=== PATIENT | female | born 1985 | race Caucasian/White ===

== ENCOUNTER 2022-05-29 17:15 | Outpatient (CLI) | payer OTHER, SELFPAY | END 2022-05-29 17:16 | disposition home or self-care (01) | LOC: ANHLAB 17:18 | PROVIDERS: Visit Provider Anesthesiology | DX: Z01.818 Encounter for other preprocedural examination (principal); N92.0 Excessive and frequent menstruation with regular cycle | CPT/HCPCS: 36415; 86850; 86900; 86901 ==

== ENCOUNTER 2022-06-05 00:17 | Day surgery (SDC) | payer BC, OTHER, SELFPAY ==
[2022-05-22 13:26] VITALS: BMI 20.4
--- NOTE | 2022-05-22 14:02 | PC.NURSE ---
Report to the Outpatient Waiting Room, entrance under the green pavilion located off [facility], at time 0600 on date 06/05/22. Planned Procedure Time: _0730_. Time changes happen often and if your time is changed the preop area will call you the afternoon before. - You and your visitor will be asked to self-screen and do not enter if you have any COVID symptoms. - Only one visitor is requested with a max of two and NO children visitors are allowed at this time. - The patient visitor may be requested to leave or wait in car when not with patient due to distancing restrictions. - A mask is optional within the hospital at this time. Patients may have clear liquids (water, carbonated beverages, clear teas, apple juice) until 3 hours prior to surgery with a maximum of 20 ounces. - No food from midnight until time of surgery - Infants may have breast milk until 4 hours before surgery, infant formula 6 hours prior to surgery. - Children will be allowed to drink immediately following surgery. If applicable, please bring a bottle or sippy cup to assist with drinking. Juice, water, soda, and popsicles are readily available. For infants on formula, please bring formula the day of surgery. Pacifiers are allowed. Take the following medications with a SIP of water the morning of surgery: __levothyroxine_ DO NOT STOP ANY OF YOUR OTHER PRESCRIPTION MEDICATIONS PRIOR TO SURGERY ?EXCEPT THE FOLLOWING Medications to discontinue per physician _multivitamin Date to take last dose_06/02/22____ Please no make-up, nail turkmen, hairspray, perfume, deodorant, or body powder the day of surgery. No jewelry (including any body piercings) or valuables the day of surgery, leave them at home. Please take a shower or bath the night before, or the morning of, surgery with an antibacterial soap. Wear comfortable, loose fitting clothing. Children are encouraged to wear pajamas. - Jewelry must be removed prior to entering the operating room. Rings and piercings that are not removed may be cut off. - The hospital will not accept responsibility for valuables. - Please leave all valuables, including medications, at home the day of surgery. If you are going home after surgery, a licensed tractor trailer moving van driver must drive you home. - NO public transportation without another adult if you receive anesthesia. - We recommend that an adult stay with you for 24 hours following discharge. - We also recommend that you do not drive, make important decision, drink alcoholic beverages, or take any drugs that were not prescribed by your health care provider for at least 24 hours after your discharge time. For Pediatric surgeries, we recommend two adults accompany the child home. Follow any additional instructions given to you from your surgeon. If you or anyone in your household have experienced Covid symptoms in the past week, please notify your surgeon or the nurse liaison at the phone number below for possible testing. Telephone instructions given to _Jace Kennedy_and asked if any additional questions and then verbalized understanding. Patient advised to call surgeon office or pre surgery nurse liaison [phone] if any additional questions.
[2022-06-05] VITALS (16 sets, daily range): BP systolic 77–98; BP diastolic 37–66; PULSE 56–95; RESP 12–18; TEMP 36–37; O2SAT 98–100
--- NOTE | 2022-06-05 07:54 | WPDHPUPDATE1 ---
History and Physical Update Update Date/Time: 06/05/22 07:54 History and Physical has been reviewed, including an updated exam of the patient. There are NO changes in the patient's condition. Risks, benefits, and alternatives have been discussed and questions answered. Patient agrees to proceed with procedure.
[2022-06-05] MEDS: ACETAMINOPHEN 500 MG TABLET 1000 MG PO (08:01)
[2022-06-05] MEDS: LACTATED RINGERS 1,000 ML 30 ML IV CONT ×2 (08:20→10:38)
[2022-06-05] MEDS: KETOROLAC 15 MG/ML VIAL (*BKC) IV PUSH (08:23)
--- NOTE | 2022-06-05 08:27 | WPDANESEPPF ---
Anes - Initial Pre Proc Eval Procedure: Operation Date: 06/05/22 07:30 Proposed Procedures p Robotic Assisted Hysterectomy with Bilateral Salpingectomy - Becky Forrest MD Date/Time: 06/05/22 08:27 Surgeon: Becky Forrest MD Pre Op Diagnosis: Menorrhagia Patient Data Age: 36 Gender: F Height: 1.63 m Weight: 51.6 kg Last Vital Signs Temp 98.2 F 06/05/22 08:25 Pulse 86 06/05/22 08:25 Resp 16 06/05/22 08:25 BP 97/66 L 06/05/22 08:25 Pulse Ox 100 06/05/22 08:25 O2 Del Method Room Air 06/05/22 08:25 Allergies Allergy/AdvReac Type Severity Reaction Status Date / Time Penicillins AdvReac Rash Verified 06/05/22 07:52 Home Medications Medication Instructions Recorded Confirmed Type levothyroxine 125 mcg tablet 125 mcg PO DAILY 05/22/22 06/05/22 History multivit with minerals-iron 18 1 tablet PO DAILY 05/22/22 06/05/22 History mg-folic ac 400 mcg-vit K 25 mcg tablet (Adults Multivitamin) Laboratory Tests 06/05/22 08:16 Beta HCG, Quant Pending Patient hx anesthesia problems: none Family hx anesthesia problems: none Results Review: All pre-operative results and documents have been reviewed as part of the pre-operative evaluation. [facility] Social History Social History Years smoked: 20 Smoking status: Former smoker Tobacco type: cigarettes Smoking end date: 04/21/20 Alcohol intake: never Substance use: never Living arrangements: with family Spiritual care concerns: No Anes - Eval Final PreProcedure Day of Procedure 06/05/22 08:27 Patient weight: normal Heart: regular rate and rhythm Lungs: clear to auscultation Airway: Mallampati scale class II Neurological: alert and oriented Last oral intake: >/= 8 hours ASA classification: II Emergent: no Anesthetic plan: proceed Anesthesia type and monitoring: general ETT and standard monitoring Results Review: All pre-operative results and documents have been reviewed as part of the pre-operative evaluation. Informed Consent: The patient's anesthetic plan and its attendant risks and benefits were discussed with the patient/family/POA. Questions were solicited and answers provided to the satisfaction of the patient/family/POA.
[2022-06-05] MEDS: ceFAZolin 2 GM/D5W 50 ML 2 GM/50 ML BAG IVPB (08:35)
[2022-06-05 09:17] LABS: Hematocrit 31.4 % (37.0-47.0); Hemoglobin 10.5 g/dL (12.0-15.0); Mean Corpuscular HGB Conc 33.4 g/dl (32-36); Mean Corpuscular Hemoglobin 31.2 pg (26-34); Mean Corpuscular Volume 93.2 fl (80-100); Mean Platelet Volume 9.1 fl (7.4-10.4); Platelet Count Result 256 k/mm3 (150-375); Red Blood Count 3.37 M/mm3 (4.2-5.4); Red Cell Distribution Width 12.4 % (11.5-14.5)
[2022-06-05] MEDS: fentaNYL CITRATE INJ (*CRX) 100 MCG/2 ML VIAL 25 MCG IV PUSH ×6 (10:56→12:09)
--- NOTE | 2022-06-05 11:15 | SUR.PHASEI ---
DR PRESSLEY NOTIFIED OF LOW BLOOD PRESSURES (78/47, 77/37) HEART RATE MID 60S. DR PRESSLEY COMING TO RECOVERY TO ASSESS PATIENT.
--- NOTE | 2022-06-05 11:45 | SUR.PHASEI ---
DR PRESSLEY AT BEDSIDE. PATIENT HAVING SEVERE PAIN. ORDERED 0.5MG DILAUDID
[2022-06-05] MEDS: HYDROmorphone HCL INJ (*CRX) 1 MG/ML SYR 0.5 MG IV PUSH (11:47)
--- NOTE | 2022-06-05 12:02 | W.PM.PROC2 ---
Procedure Note - Detailed Date of Procedure 06/05/22 Pre-op Diagnosis Menorrhagia Post-op Diagnosis Same Procedure Performed Robot assisted Total hysterectomy with bilateral salpingectomy. Surgeon Becky Forrest MD Anesthesia General Indications heavy vaginal bleeding Findings normal-appearing uterus, ovaries, and fallopian tubes, status post tubal ligation. Description of Procedure This patient was taken to the operating room. She was prepped and draped in the dorsal lithotomy position after induction of general anesthesia. The uterine manipulator and Chapis cup were placed. This was done with a speculum and tenaculum. The speculum was placed. The cervix was grasped with a tenaculum. The stay sutures were placed at 3 and 9:00 a.m.. The stay sutures of 0 Vicryl were tied to the appropriately Size scope after it was slipped around the cervix.. The tip of the DREAD manipulator was placed in the intrauterine cavity. The cup was slid into place around the cervix and into the fornices. It was locked into place. The sutures were then wrapped around the handle and tied under tension. A 8 mm skin incision was made in the left upper quadrant the abdomen. a 5 mm Visiport trocar was inserted into abdominal cavity and pneumoperitoneum was achieved. A 8 mm supraumbilical incision was made and a 8 mm trocar was inserted into the intrauterine cavity under direct visualization of the scope. an 8 mm incision was made in the right upper quadrant of the abdomen and an 8 mm robotic trocar was placed the inter uterine cavity under direct visualization the scope. An 11 mm trocar was inserted in the right upper quadrant of the abdomen rectal is a cystoscope after an incision was made there as well. The robot was docked. Electronic Orientation of the robot was performed. Bilateral ureteral lysis was performed. This was done from the pelvic brim down to the uterine artery. This was done with careful dissection using sharp and blunt dissection. The fallopian tubes were removed bilaterally. The mesosalpinx around the fallopian tubes were cauterized transected with LigaSure cautery. This was done in a bilateral fashion from the ovary to the uterine cornua. The fallopian tube was transected at the uterine cornu and amputated. The tube was taken out the left lower quadrant trocar site. In a stepwise fashion along the lateral aspects of the uterus the round ligament and broad ligaments were cauterized transected down to the level of the uterine arteries. A bladder flap was created in the bladder was moved distally to the end of the cervix and over the Chapis cup. The bilateral uterine arteries were cauterized and transected. Colpotomy was then performed. In a circumferential fashion the vagina was transected using unipolar cautery. The incision was made down on the Chapis cup. The uterus and cervix were taken out through the vagina. A pneumo occluder was placed in the vagina. The vaginal cuff was closed with a 0 V lock suture in a running fashion. The pelvis was irrigated with copious amounts antibiotic irrigation. The ureters were again examined and found to be intact and flowing freely under the uterine arteries into the bladder. The bladder was intact. It was examined directly. The vagina was irrigated with Betadine solution after removal of the Pneumo occluder. the trocars were removed after the robot was undocked. The skin was closed with subacute or Dermabond. The patient was taken to recovery room. She was stable condition. Sponge lap and needle counts were correct x2. Estimated Blood Loss -150.0 Urine Output 800 Drains Yes Packing No Pathology Yes Complications No immediate complications Condition Stable Disposition Floor
--- NOTE | 2022-06-05 12:31 | PC.NURSE ---
This patient, Jace Kennedy, was received from PACU on 06/05/22 at 1231. Patient/family oriented to unit policies and routines
[2022-06-05] MEDS: DEXTROSE 5%/0.45% SOD CHL 1,000 ML 125 ML IV CONT (12:53)
[2022-06-05] MEDS: KETOROLAC 30 MG/ML VIAL (*BKC) IV PUSH (13:04)
--- NOTE | 2022-06-05 13:12 | PC.NURSE ---
On 06/05/22, the student, Tiana Mccann, provided care and completed [facility] documentation on this patient. I have reviewed the student's documentation and agree with the findings.
[2022-06-05] MEDS: HYDROcodone/acetaminophen (*CRX) 10-325 MG TABLET 1 TAB PO ×4 (13:33→23:13)
[2022-06-05] MEDS: SIMETHICONE 80 MG TAB.CHEW (13:39)
[2022-06-05] MEDS: SIMETHICONE 80 MG TAB.CHEW PO ×3 (17:20→23:13)
[2022-06-05] MEDS: IBUPROFEN 600 MG TABLET PO (19:57)
[2022-06-06 03:20] VITALS: BP 89/53; PULSE 69; RESP 16; TEMP 36.9
[2022-06-06] MEDS: HYDROcodone/acetaminophen (*CRX) 10-325 MG TABLET 1 TAB PO (03:21)
[2022-06-06] MEDS: SIMETHICONE 80 MG TAB.CHEW PO ×3 (03:21→11:45)
[2022-06-06] MEDS: IBUPROFEN 600 MG TABLET PO ×2 (03:21→08:38)
--- NOTE | 2022-06-06 07:00 | PC.NURSE ---
Pt introductions made and plan of care discussed per post op criminal lawyer surgery, pain management, daily care activities and pending discharge to home. PT sole recipient of such instructions and no barriers to learning identified at this time. PT received such instructions this shift via one to one discussion and demonstrations. PT verbalized understanding of such care.
[2022-06-06] MEDS: LEVOTHYROXINE SODIUM 125 MCG TABLET PO (07:48)
[2022-06-06 08:10] VITALS: BP 87/55; PULSE 100; RESP 16; TEMP 37.1; O2SAT 100
--- NOTE | 2022-06-06 08:25 | PM.GYNPNOP ---
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 TENDER HELPER- PN:Subj Post-Op Subjective Date/time seen: 06/06/22 08:25 Subjective: patient reports feeling better, patient has no complaints and pain is well controlled Exam Const: General: healthy appearing, comfortable and no acute distress Resp: Auscultation: clear to auscultation bilaterally, no rales, no rhonchi and no wheezes Cardio: Rate: regular rate Heart sounds: no click, no murmurs and no rubs GI: Inspection: non-distended Auscultation: normal bowel sounds Extrem: General: normal to inspection, no pedal edema and no calf tenderness FILTER TANK TENDER HELPER - PN: Obj Data Vital Signs Vital Signs: Vital Signs - 24 hr 06/05/22 10:38 06/05/22 10:50 06/05/22 11:05 Temperature 96.9 F L Pulse Rate 94 72 82 Respiratory Rate 16 12 18 Blood Pressure 98/57 L 97/57 L 96/57 L Pulse Oximetry 100 100 100 Oxygen Delivery Simple Face Mask Simple Face Mask Simple Face Mask Oxygen Flow Rate 8 8 8 06/05/22 11:20 06/05/22 11:10 06/05/22 11:30 Temperature Pulse Rate 63 Respiratory Rate 16 Blood Pressure 84/46 L 78/47 L 91/61 L Pulse Oximetry 100 Oxygen Delivery Simple Face Mask Oxygen Flow Rate 8 06/05/22 11:35 06/05/22 11:15 06/05/22 11:50 Temperature Pulse Rate 58 L 56 L Respiratory Rate 14 16 Blood Pressure 90/53 L 77/37 L 81/49 L Pulse Oximetry 100 100 Oxygen Delivery Room Air Room Air Oxygen Flow Rate 06/05/22 12:00 06/05/22 12:15 06/05/22 12:26 Temperature Pulse Rate 60 57 L 65 Respiratory Rate 16 12 12 Blood Pressure 85/48 L 86/41 L 87/52 L Pulse Oximetry 100 98 100 Oxygen Delivery Room Air Room Air Room Air Oxygen Flow Rate 06/05/22 12:55 06/05/22 16:40 06/05/22 19:55 Temperature 96.8 F L 97.2 F L 98.6 F Pulse Rate 63 81 95 Respiratory Rate 14 16 16 Blood Pressure 97/53 L 94/53 L 98/63 L Pulse Oximetry 100 100 Oxygen Delivery Oxygen Flow Rate 06/06/22 03:20 Temperature 98.4 F Pulse Rate 69 Respiratory Rate 16 Blood Pressure 89/53 L Pulse Oximetry Oxygen Delivery Oxygen Flow Rate Intake/Output Intake/Output: Intake & Output 06/03/22 06/04/22 06/05/22 06/06/22 23:59 23:59 23:59 23:59 Intake Total 1450 Output Total 1640 Balance -190 Meds/Results Medications: Active Medications Generic Name Dose Route Start Last Admin Trade Name Freq PRN Reason Stop Dose Admin Hydrocodone Bitart/Acetaminophen 1 tab 06/05/22 12:27 Hydrocodone/Acetaminophen (*Crx) 5-325 Mg Tablet PO Q3H PRN Pain Rated 5 or Less Hydrocodone Bitart/Acetaminophen 1 tab 06/05/22 12:27 06/06/22 03:21 Hydrocodone/Acetaminophen (*Crx) 10-325 Mg Tablet PO 1 tab Q3H PRN Administration Pain Rated 6 or Greater Ibuprofen 600 mg 06/05/22 12:27 06/06/22 03:21 Ibuprofen 600 Mg Tablet PO 600 mg Q6H PRN Administration Cramping Ketorolac Tromethamine 30 mg 06/05/22 12:27 06/05/22 13:04 Ketorolac 30 Mg/Ml Vial (*Bkc) IV PUSH 06/10/22 12:26 30 mg Q6H PRN Administration Pain Rated 4-6 Levothyroxine Sodium 125 mcg 06/06/22 06:30 06/06/22 07:48 Levothyroxine Sodium 125 Mcg Tablet PO 125 mcg DAILY@0630 JUDIT Administration Naloxone HCl 0.1 mg 06/05/22 12:27 Naloxone Hcl 0.4 Mg/Ml Vial IV PUSH Q2M PRN Respiratory rate less than 10 Ondansetron HCl 4 mg 06/05/22 12:27 Ondansetron Inj 4 Mg/2 Ml Vial IV PUSH Q6H PRN Nausea And Vomiting Simethicone 80 mg 06/05/22 17:10 06/06/22 03:21 [place]
[2022-06-06 08:37] VITALS: PULSE 100; RESP 16; O2SAT 100
[2022-06-06] MEDS: HYDROcodone/acetaminophen (*CRX) 5-325 MG TABLET 1 TAB PO ×2 (08:37→11:45)
--- NOTE | 2022-06-06 08:45 | WPDANESPN ---
Anes - Prog Note Post-Op Date/Time: 06/06/22 08:45 Cardiovascular status: normal Respiratory status: normal Airway patency: baseline Mental status: baseline Post-Op hydration status: normal Vital Signs: Last Vital Signs Temp 98.4 F 06/06/22 03:20 Pulse 69 06/06/22 03:20 Resp 16 06/06/22 03:20 BP 89/53 L 06/06/22 03:20 Pulse Ox 100 06/05/22 16:40 O2 Del Method Room Air 06/05/22 12:26 O2 Flow Rate 8 06/05/22 11:20 Pain Score (VAS): 2 I/O: Intake & Output 06/05/22 06/06/22 06/06/22 23:59 07:59 15:59 Intake Total 800 Output Total 800 Balance 0 Laboratory Tests 06/05/22 08:54 06/05/22 08:54 WBC 7.0 RBC 3.37 L Hgb 10.5 L Hct 31.4 L MCV 93.2 MCH 31.2 MCHC 33.4 RDW 12.4 Plt Count 256 MPV 9.1 Post-procedural complaints: nausea and vomiting (vomiting post narcotic use during the night) Patient Feedback: Patient satisfied with anesthetic care.
--- NOTE | 2022-06-06 11:45 | PC.NURSE ---
Pt received discharge instructions per protocol and verbalized understanding of such care.
--- NOTE | 2022-06-06 12:00 | PC.NURSE ---
PT discharged to home ambulatory accompanied by spouse and taken to waiting car. follow up appts confirmed
== END 2022-06-06 12:00 | disposition home or self-care (01) ==
LOC: ANHSURGERY 07:52 → ANHOB2 12:31
PROVIDERS: Visit Provider Obstetrics & Gynecology
PROC: (CPT 58571; principal; 2022-06-05 07:30)
DX: N92.0 Excessive and frequent menstruation with regular cycle (principal); D25.0 Submucous leiomyoma of uterus; N80.00 Endometriosis of the uterus, unspecified; Z87.891 Personal history of nicotine dependence
CPT/HCPCS: 58571; S2900; 36415; 85027; 86850; 86900; 86901; 88307; 99199; A9270; J0330; J0690; J1100; J1170; J1885; J2250; J2370; J2704; J2710; J3010; J7030; J7120